=== PATIENT | female | born 1970 | race Two or more races ===

== ENCOUNTER 2021-08-29 12:45 | Inpatient (IN) | payer OTHER ==
[~2021-08-29] VITALS: Ht 170.2 cm; Wt 104.3 kg
[2021-08-31] MEDS ORDERED: SIMVASTATIN20 MG (13:22)
== END 2021-09-02 13:47 | disposition home or self-care (01) | DRG 743 ==
LOC: OB/GYN 08-31 05:00 → SURH 08-31 06:23 → O/R 08-31 06:23 → OB/GYN 08-31 12:45 → SURH 08-31 23:53
PROVIDERS: ADMIT Obstetrics & Gynecology Gynecologic Oncology; ATTEND Obstetrics & Gynecology Gynecologic Oncology
PROC: 0UT70ZZ Resection of Bilateral Fallopian Tubes, Open Approach (ICD-10-PCS; 2021-08-31)
PROC: 0UT20ZZ Resection of Bilateral Ovaries, Open Approach (ICD-10-PCS; 2021-08-31)
PROC: 0DTU0ZZ Resection of Omentum, Open Approach (ICD-10-PCS; 2021-08-31)
PROC: 0UT90ZZ Resection of Uterus, Open Approach (ICD-10-PCS; principal; 2021-08-31 05:00)
DX: D25.1 Intramural leiomyoma of uterus (principal); N72 Inflammatory disease of cervix uteri; D27.1 Benign neoplasm of left ovary; Z20.822 Contact with and (suspected) exposure to COVID-19

== ENCOUNTER 2022-01-25 10:46 | Outpatient (CLI) | payer OTHER ==
[~2022-01-25 10:46] MED LIST: SIMVASTATIN20 MG
== END 2022-01-25 10:51 | disposition home or self-care (01) ==
LOC: SONOGRAMA 10:46
PROVIDERS: ATTEND Pathology Anatomic Pathology & Clinical Pathology
DX: E04.1 Nontoxic single thyroid nodule (principal)